=== PATIENT | male | born 1940 | race Caucasian/White ===

== ENCOUNTER 2023-06-07 15:11 | Inpatient (IN) | payer MEDICARE, OTHER ==
[~2023-06-07] VITALS: Ht 172.7 cm; Wt 77.6 kg
[2023-06-07] MEDS ORDERED: DOCU100T2 PO (16:56)
[2023-06-07] MEDS ORDERED: CYAN-51 PO (16:56)
[2023-06-07] MEDS ORDERED: QUET25TA PO (16:56)
[2023-06-07] MEDS ORDERED: ACET-868 PO (16:56)
[2023-06-07] MEDS ORDERED: IV NS 0.9% 1,000 ML BAG IV ONE (17:00)
[2023-06-07] MEDS ORDERED: PIPERACILLIN /TAZOBACTAM 3.375 G in IV D5W 50 ML IV ONE (17:00)
[2023-06-07] MEDS ORDERED: PIPERACI/TAZO 3.375GM/D5W 50ML PB IV ONE (17:14)
[2023-06-07 17:15] LABS: BASOPHILS % (AUTO) 0.1 % (0.0-2.0); EOSINOPHILS # (AUTO) 0.3 K/uL (0.0-0.7); EOSINOPHILS % (AUTO) 4.6 % (0.0-6.0); HEMATOCRIT 44 % (39-51); HEMOGLOBIN 14.2 g/dL (13.5-17.5); LYMPHOCYTES % (AUTO) 32.3 % (20.0-44.0); MEAN CORPUSCULAR HEMOGLOBIN 29 PG (26.0-33.0); MEAN CORPUSCULAR HGB CONC 33 g/dl (31.0-36.0); MEAN CORPUSCULAR VOLUME 87 fL (80-96); MONOCYTES # (AUTO) 0.8 K/uL (0.1-1.30); MONOCYTES % (AUTO) 12.1 % (2.0-12.0); NEUTROPHILS # (AUTO) 3.2 K/uL (1.8-8.9); NEUTROPHILS % (AUTO) 50.9 % (43.0-81.0); PLATELET COUNT (AUTO) 133 K/uL (150-450); RED BLOOD CELL COUNT(AUTO) 4.98 MIL/uL (4.5-6.0); WHITE BLOOD COUNT (AUTO) 6.3 K/uL (4.3-11.0)
[2023-06-07 17:33] LABS: CALCIUM, SERUM 9.4 mg/dL (8.5-10.1); POTASSIUM 4.1 mmol/L (3.5-5.1)
[2023-06-07 17:39] LABS: ALBUMIN 3.8 g/dL (3.4-5.0); BILIRUBIN,DIRECT 0.1 mg/dL (0.0-0.2); BILIRUBIN,TOTAL 0.2 mg/dL (0.2-1.0); TOTAL PROTEIN, SERUM 6.9 g/dL (6.4-8.2)
[2023-06-07 17:45] LABS: APPEARANCE,URINE CLEAR (CLEAR); BILIRUBIN,URINE NEGATIVE (NEGATIVE); BLOOD, URINE 1+ Ery/uL (NEGATIVE); COLOR,URINE YELLOW (YELLOW); KETONES,URINE NEGATIVE (NEGATIVE); LEUKOCYTE ESTERASE ,URINE TRACE (NEGATIVE); NITRITE, URINE NEGATIVE (NEGATIVE); PH,URINE 5.5 (5.0-8.0); PROTEIN,URINE 1+ mg/dl (NEGATIVE); UGLUCOSE NEGATIVE (NEGATIVE); UROBILINOGEN,URINE 0.2 EU/dL (0.2)
[2023-06-07 17:50] LABS: INR 1.08 (0.91-1.10); PARTIAL THROMBOPLASTIN TIME 26.2 SEC (24.3-34.3); PROTHROMBIN TIME 11.3 SECS (9.2-11.1)
[2023-06-07 17:58] LABS: ADD URINE CULTURE NO; BACTERIA,URINE RARE /HPF (None Seen); SQUAMOUS EPITHELIAL CELL,UR 0-2 /HPF (None Seen)
[2023-06-07] MEDS ORDERED: ACETAMINOPHEN 325 MG TABLET PO PRN (19:30)
[2023-06-07] MEDS ORDERED: MORPHINE SULFATE INJ 2 MG/ML DISP.SYRIN IV PRN (19:30)
[2023-06-07] MEDS ORDERED: IV NS 0.9% 1,000 ML IV SCH (19:30)
[2023-06-07] MEDS ORDERED: hydrALAZINE HCL IV 20 MG VIAL IV PRN (19:30)
[2023-06-07] MEDS ORDERED: ONDANSETRON HCL/PF 4 MG/2 ML VIAL IVP PRN (19:30)
[2023-06-07] MEDS ORDERED: CEFEPIME 1 GM in IV D5W 50 ML IV SCH (20:00)
[2023-06-07] MEDS: ENOXAPARIN SODIUM 40 MG/0.4 ML DISP.SYRIN SQ SCH (20:30)
[2023-06-07 21:00] VITALS: BP 143/74; TEMP 98.2; O2SAT 97
[2023-06-07] MEDS ORDERED: CEFEPIME 1 GM VIAL ONE (21:40)
[2023-06-07] MEDS: LORAZEPAM INJ 2 MG/ML VIAL IV PRN (23:01)
[2023-06-08 08:33] VITALS: BP 118/67; TEMP 97.5; O2SAT 98
[2023-06-08] MEDS ORDERED: IV NS 0.9% 1,000 ML IV PRN (08:34)
[2023-06-08] MEDS: DOCUSATE SODIUM 100 MG CAPSULE PO SCH (08:39)
[2023-06-08] MEDS: QUETIAPINE FUMARATE 25 MG TABLET PO SCH ×2 (08:39→17:00)
[2023-06-08 09:03] LABS: BASOPHILS # (AUTO) 0.1 K/uL (0.0-0.2); BASOPHILS % (AUTO) 0.8 % (0.0-2.0); EOSINOPHILS # (AUTO) 0.1 K/uL (0.0-0.7); EOSINOPHILS % (AUTO) 0.8 % (0.0-6.0); HEMATOCRIT 49 % (39-51); HEMOGLOBIN 15.8 g/dL (13.5-17.5); LYMPHOCYTES # (AUTO) 1.3 K/uL (0.8-4.8); LYMPHOCYTES % (AUTO) 13.8 % (20.0-44.0); MEAN CORPUSCULAR HEMOGLOBIN 29 PG (26.0-33.0); MEAN CORPUSCULAR HGB CONC 33 g/dl (31.0-36.0); MEAN CORPUSCULAR VOLUME 88 fL (80-96); MONOCYTES # (AUTO) 0.7 K/uL (0.1-1.30); MONOCYTES % (AUTO) 7.3 % (2.0-12.0); NEUTROPHILS # (AUTO) 7.3 K/uL (1.8-8.9); NEUTROPHILS % (AUTO) 77.3 % (43.0-81.0); PLATELET COUNT (AUTO) 128 K/uL (150-450); RED BLOOD CELL COUNT(AUTO) 5.53 MIL/uL (4.5-6.0); RED CELL DISTRIBUTION WIDTH 14.2 % (11.5-15.0); WHITE BLOOD COUNT (AUTO) 9.4 K/uL (4.3-11.0)
[2023-06-08 09:39] LABS: ALANINE AMINOTRANSFERASE 18 U/L (12-78); ALBUMIN 3.8 g/dL (3.4-5.0); ALKALINE PHOSPHATASE 75 U/L (46-116); ASPARTATE AMINOTRANSFERASE 23 U/L (15-37); BILIRUBIN,TOTAL 0.7 mg/dL (0.2-1.0); CALCIUM, SERUM 9.3 mg/dL (8.5-10.1); CARBON DIOXIDE 29 mmol/L (21-32); CHLORIDE 106 mmol/L (98-107); CREATININE 0.8 mg/dL (0.6-1.3); GLUCOSE 124 mg/dL (74-106); MAGNESIUM 2.3 mg/dL (1.8-2.4); PHOSPHORUS 3.5 mg/dL (2.5-4.9); POTASSIUM 3.8 mmol/L (3.5-5.1); SODIUM SERUM 140 mmol/L (136-145); UREA NITROGEN, BLOOD 23 mg/dL (7-18)
[2023-06-08 13:01] VITALS: BP 126/79; TEMP 97.5; O2SAT 95
[2023-06-08] MEDS: LORAZEPAM INJ 2 MG/ML VIAL IV PRN (15:44)
[2023-06-08 16:08] VITALS: BP 125/52; TEMP 97.7; O2SAT 99
[2023-06-08 20:00] VITALS: BP 111/83; TEMP 98.2; O2SAT 100
[2023-06-08] MEDS: CEFEPIME 2 GM in IV D5W 100 ML IV SCH (20:24)
[2023-06-08] MEDS: ENOXAPARIN SODIUM 40 MG/0.4 ML DISP.SYRIN SQ SCH (20:27)
[2023-06-09 04:00] VITALS: BP 112/64; TEMP 98.6; O2SAT 100
[2023-06-09 08:00] VITALS: BP 100/63; TEMP 97.9; O2SAT 99
[2023-06-09] MEDS: QUETIAPINE FUMARATE 25 MG TABLET PO SCH ×2 (08:20→16:20)
[2023-06-09] MEDS: DOCUSATE SODIUM 100 MG CAPSULE PO SCH (08:20)
[2023-06-09] MEDS ORDERED: BUPIVACAINE MPF 0.5% W/EPI INJ 30 ML VIAL ONE (13:19)
[2023-06-09] MEDS ORDERED: ANESTHESIA TRAY IN PYXIS 1 EA TRAY MC ONE (13:19)
[2023-06-09] MEDS ORDERED: LIDOCAINE 1% INJ 50 ML MDV IJ ONE (13:20)
[2023-06-09] MEDS ORDERED: LIDOCAINE HCL/MPF 1% 30 ML VIAL IJ ONE (13:21)
[2023-06-09] MEDS ORDERED: CELLULOSE,OXIDIZED 1 EA PACK MC ONE (14:40)
[2023-06-09] MEDS ORDERED: CELLULOSE,OXIDIZED 1 EACH EACH MC ONE (14:40)
[2023-06-09] MEDS ORDERED: BUPIVACAINE 0.5 % PF 150 MG/30 ML VIAL ONE (15:30)
[2023-06-09 16:00] VITALS: BP 118/72; TEMP 98.6; O2SAT 98
[2023-06-09 20:00] VITALS: BP 105/58; TEMP 97.9; O2SAT 98; O2SAT 99
[2023-06-09] MEDS: CEFEPIME 2 GM in IV D5W 100 ML IV SCH (20:12)
[2023-06-09] MEDS: ENOXAPARIN SODIUM 40 MG/0.4 ML DISP.SYRIN SQ SCH (20:13)
[2023-06-09] MEDS: LORAZEPAM INJ 2 MG/ML VIAL IV PRN (22:01)
[2023-06-10] VITALS: BP 104/80; TEMP 97.9; O2SAT 98
[2023-06-10 07:13] LABS: BASOPHILS % (AUTO) 0.3 % (0.0-2.0); EOSINOPHILS # (AUTO) 0.3 K/uL (0.0-0.7); HEMATOCRIT 41 % (39-51); HEMOGLOBIN 13.9 g/dL (13.5-17.5); LYMPHOCYTES # (AUTO) 1.9 K/uL (0.8-4.8); LYMPHOCYTES % (AUTO) 21.4 % (20.0-44.0); MEAN CORPUSCULAR HEMOGLOBIN 29 PG (26.0-33.0); MEAN CORPUSCULAR HGB CONC 34 g/dl (31.0-36.0); MEAN CORPUSCULAR VOLUME 86 fL (80-96); MONOCYTES # (AUTO) 1.2 K/uL (0.1-1.30); MONOCYTES % (AUTO) 12.7 % (2.0-12.0); NEUTROPHILS # (AUTO) 5.7 K/uL (1.8-8.9); NEUTROPHILS % (AUTO) 62.6 % (43.0-81.0); PLATELET COUNT (AUTO) 129 K/uL (150-450); RED CELL DISTRIBUTION WIDTH 13.7 % (11.5-15.0); WHITE BLOOD COUNT (AUTO) 9.1 K/uL (4.3-11.0)
[2023-06-10 07:21] LABS: CALCIUM, SERUM 9.2 mg/dL (8.5-10.1); CARBON DIOXIDE 25 mmol/L (21-32); CHLORIDE 106 mmol/L (98-107); CREATININE 0.8 mg/dL (0.6-1.3); GLUCOSE 114 mg/dL (74-106); MAGNESIUM 2.4 mg/dL (1.8-2.4); PHOSPHORUS 3.3 mg/dL (2.5-4.9); POTASSIUM 3.9 mmol/L (3.5-5.1); SODIUM SERUM 139 mmol/L (136-145); UREA NITROGEN, BLOOD 35 mg/dL (7-18)
[2023-06-10] MEDS: LORAZEPAM INJ 2 MG/ML VIAL IV PRN (07:35)
[2023-06-10] MEDS: QUETIAPINE FUMARATE 25 MG TABLET PO SCH ×2 (08:28→16:36)
[2023-06-10] MEDS: DOCUSATE SODIUM 100 MG CAPSULE PO SCH (08:28)
[2023-06-10] MEDS ORDERED: SERTRALINE HCL 25 MG TABLET PO SCH (09:00)
[2023-06-10] MEDS ORDERED: DIVA125C2 PO (15:11)
[2023-06-10] MEDS ORDERED: CEPH500C2 PO ×2 (15:11)
[2023-06-10] MEDS ORDERED: DIVALPROEX SODIUM 125 MG CAP.SPRINK PO SCH (17:00)
[2023-06-10] MEDS ORDERED: QUETIAPINE FUMARATE 25 MG TABLET PO SCH (21:00)
== END 2023-06-10 20:12 | DRG 394 ==
LOC: ER 15:11 → MED 19:16 → TELE 20:48
PROVIDERS: ADMIT Internal Medicine; ATTEND Student in an Organized Health Care Education/Training Program
DX: K40.30 Unilateral inguinal hernia, with obstruction, without gangrene, not specified as recurrent (principal); F03.93 Unspecified dementia, unspecified severity, with mood disturbance; N39.0 Urinary tract infection, site not specified; N21.0 Calculus in bladder; F03.90 Unspecified dementia, unspecified severity, without behavioral disturbance, psychotic disturbance, mood disturbance, and anxiety; F25.9 Schizoaffective disorder, unspecified; E53.8 Deficiency of other specified B group vitamins; Z66 Do not resuscitate; Z79.899 Other long term (current) drug therapy; N32.3 Diverticulum of bladder; N50.82 Scrotal pain; B96.89 Other specified bacterial agents as the cause of diseases classified elsewhere; D69.6 Thrombocytopenia, unspecified; N50.812 Left testicular pain; N50.811 Right testicular pain; F39 Unspecified mood [affective] disorder; R41.0 Disorientation, unspecified
CPT/HCPCS: 36415; 71045-TC; 80048-TC; 80053-TC; 80076-TC; 81001; 83605-TC; 83735-TC; 84100-TC; 84484-TC; 85025-TC; 85730-TC; 87040-TC; 87081-TC; 87086-TC; 93307-TC; A4223; G0378; J0692; J1650; J2060; J2270; J2543; J3490; J7030; J7040; J7060